=== PATIENT | female | born 1925 | race Caucasian/White ===

== ENCOUNTER 2017-11-28 10:11 | Emergency (ER) | payer MEDICAID, MEDICARE, OTHER ==
[2017-11-28 10:38] VITALS: BP 151/58
--- NOTE | 2017-11-28 11:15 | UC ---
Shortness of Breath HPI - HPI Summary HPI Summary: short of breath about 3 weeks getting worse over the past 1 day, chest heaviness no cough ,no cold sx no calf pain , no recent traves pt. 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 Onset/Duration: Gradual Onset, Lasting Weeks - 3, Still Present Timing: Constant Current Severity: Moderate Dyspnea At: Exertion Aggrevating Factors: Movement Alleviating Factors: Nothing Associated Signs & Symptoms: Negative: Cough (Productive), Cough (Nonproductive) , Cough (Bloody Sputum), Wheezing, Chest Pain w/Cough, Chest Pain Unrelated to Cough, Fever, Chills, Diaphoresis, Nasal Congestion, Dizzy, Calf Pain/Swelling, Edema - Allergy/Home Medications Allergies/Adverse Reactions: Allergies Allergy/AdvReac Type Severity Reaction Status Date / Time No Known Allergies Allergy Verified 11/28/17 10:38 Home Medications: Home Medications Amlodipine Besylate/Benazepril [Lotrel 10-40 mg Capsule] 1 tab PO QAM 11/28/17 [ History Confirmed 11/28/17] Aspirin TAB* [Aspirin 325 MG TAB*] 325 mg PO DAILY 11/28/17 [History Confirmed 11/28/17] Atenolol TAB* [Tenormin TAB* 25 MG] 25 mg PO DAILY 11/28/17 [History Confirmed 11/28/17] Ibandronate Sodium [Boniva] 150 mg PO MONTHLY 11/28/17 [History Confirmed ] Otc Eye Drops 1 dose BOTH EYES QAM 11/28/17 [History Confirmed 11/28/17] Pravastatin Sodium 20 mg PO QPM 11/28/17 [History Confirmed 11/28/17] Vit A/Vit C/Vit E/Zinc/Copper [Preservision Areds Softgel] 1 each PO BID [History Confirmed 11/28/17] PMH/Surg Hx/FS Hx/Imm Hx Cardiovascular History: Hypertension - Surgical History Surgical History: Yes Surgery Procedure, Year, and Place: cholecystectomy age 40s - Family History Known Family History: Positive: Hypertension - Social History Alcohol Use: Rare Substance Use Type: None Smoking Status (MU): Former Smoker When Did the Patient Quit Smoking/Using Tobacco: 1997 Review of Systems Constitutional: Negative Skin: Negative Eyes: Negative ENT: Negative Respiratory: Shortness Of Breath Cardiovascular: Negative Gastrointestinal: Negative Is Patient Immunocompromised?: No All Other Systems Reviewed And Are Negative: Yes Physical Exam Triage Information Reviewed: Yes Appearance: No Pain Distress, Ill-Appearing Vital Signs: Initial Vital Signs Temp 98.4 F 11/28/17 10:32 Pulse 85 11/28/17 10:32 Resp 20 11/28/17 10:32 BP 151/58 11/28/17 10:32 Pulse Ox 89 11/28/17 10:32 Vital Signs Reviewed: Yes Eyes: Positive: Conjunctiva Clear ENT: Positive: Normal ENT inspection, Hearing grossly normal, Pharynx normal Neck: Positive: Supple, Nontender, No Lymphadenopathy Respiratory: Positive: Chest non-tender, Decreased breath sounds Cardiovascular: Positive: RRR, No Murmur, Pulses Normal Musculoskeletal Exam: Normal Musculoskeletal: Positive: Strength Intact, ROM Intact, No Edema Skin Exam: Normal Diagnostics - EKG Cardiac Rate: NL Cardiac Rhythm: Sinus: Normal Ectopy: None ST Segment: Non-Specific Shortness of Breath Dx - Course Course Of Treatment: pt. is going to [facility] ED for evaluation and tx - Differential Dx/Diagnosis Provider Diagnoses: shortness of breath Discharge - Sign-Out/Discharge Documenting (check all that apply): Patient Departure All imaging exams completed and their final reports reviewed: No Studies - Discharge Plan Condition: Fair Disposition: TRANS HIGHER LVL OF CARE FAC Patient Education Materials: Shortness of Breath (ED) Referrals: Donovan Santamaria MD [Primary Care Provider] - Additional Instructions: please go to [facility] Emergency room for evaluation and tx - Billing Disposition and Condition Condition: FAIR Disposition: Trans Higher Lvl of Care Fac
== END 2017-11-28 11:05 | disposition short-term general hospital (02) ==
LOC: UCCORT 10:11
DX: R06.02 Shortness of breath (principal); Z87.891 Personal history of nicotine dependence
CPT/HCPCS: 93005; 99202; G0463